=== PATIENT | male | born 1945 | race Caucasian/White ===

== ENCOUNTER 2018-11-15 15:13 | Observation (INO) | payer MEDICARE, OTHER ==
[~2018-11-15] VITALS: Ht 175.3 cm; Wt 83.9 kg
--- OUTSIDE RECORDS SUMMARY | ~2018-11-15 | XMS | Clinical Summary ---
Demographics + + + | Address | [address] | | | [place] [address] | + + + | Home Phone | | + + + | Preferred Language | Unknown | + + + | Marital Status | | + + + | Druze Affiliation | Unknown | + + + | Race | Unknown | + + + | Ethnic Group | Unknown | + + + Author + + + | Author | [facility] | | | and [place] | + + + | Organization | [facility] | | | and [place] | + + + | Address | Unknown | + + + | Phone | Unavailable | + + + Support + + +---------+ + | Name | Relationship | Address | Phone | + + +---------+ + | CORY DELVALLE | ECON | Unknown | | + + +---------+ + Care Team Providers + +------+ + | Care Hat Forming Machine Operator Name | Role | Phone | + +------+ + PP | Unavailable | + +------+ + Allergies Not on File Medications Not on file Active Problems Not on file Social History + +-------+ +--------+------+ | Tobacco Use | Types | Packs/Day | Years | Date | | | | | Used | | + +-------+ +--------+------+ | Never Assessed | | | | | + +-------+ +--------+------+ + + + | Sex Assigned at | Date Recorded | | | | + + + | Not on file | | + + + + + + + | Job Start Date | Occupation | Industry | + + + + | Not on file | Not on file | Not on file | + + + + + + + + | Travel History | Travel Start | Travel End | + + + + + + | No recent travel history available. | + + Plan of Treatment + + + + + | Health Maintenance | Due Date | Last Done | Comments | + + + + + | Vaccine: | | | | | Dtap/Tdap/Td (1 - | 6 | | | | Tdap) | | | | + + + + + | Vaccine: Zoster (1 | | | | | of 2) | 7 | | | + + + + + | Vaccine: | | | | | Pneumococcal 65+ | 2 | | | | Low/Medium Risk (1 | | | | | of 2 - PCV13) | | | | + + + + + | Vaccine: Influenza | | | | | (Season Ended) | 9 | | | + + + + + Results Not on filefrom Last 3 Months"
--- OUTSIDE RECORDS SUMMARY | ~2018-11-15 | XMS | Clinical Summary ---
Demographics + + + | Address | [address] | | | [place] [address] | + + + | Home Phone | | + + + | Preferred Language | Unknown | + + + | Marital Status | | + + + | Presybeterian Affiliation | Unknown | + + + | Race | Unknown | + + + | Ethnic Group | Unknown | + + + Author + + + | Author | [facility] | + + + | Organization | [facility] | + + + | Address | Unknown | + + + | Phone | Unavailable | + + + Support + + + + + | Name | Relationship | Address | Phone | + + + + + | Kaye Shin | ECON | [address] | | | | [place] | | | | | [address] | | + + + + + Care Team Providers + +------+ + | Care Plant Buyer Name | Role | Phone | + +------+ + | Andrez Juarez MD | PP | | + +------+ + Allergies Not on File Current Medications Not on file Active Problems Not [...] on file | | + + + Plan of Treatment Not on file Results Not on filefrom Last 3 Months Insurance + +--------+ +------+-------+ + | Payer | Benefi | Subscriber | Type | Phone | Address | | | t Plan | ID | | | | | | / | | | | | | | Group | | | | | + +--------+ +------+-------+ + | MEDICARE | MEDICA | [id number] | | | [address] | | | RE | | | | [place] [address] | | | IP-OP | | | | | + +--------+ +------+-------+ + | [employer] [place] | [employer] | [id number] | | | | | | [place] | | | | | | | [place] | | | | | + +--------+ +------+-------+ + + +--------+ +--------+ + + | Guarantor Name | Accoun | Relation to | Date | Phone | Billing Address | | | t Type | Patient | of | | | | | | | | | | + +--------+ +--------+ + + | YUNIOR SHIN | Person | Self [birth year] Home: | [address] | | | al/Fam | | 1946 | [phone] [place] [address] | | | virgil | | | [phone] | | + +--------+ +--------+ + +"
--- NOTE | 2018-11-15 17:50 | NUR ---
PT ARRIVED TO ROOM 110 AT THIS TIME. PT ALERT AND ORIENTED. PT AMBUALTED TO BATHROOM TO VOID SBA.
[2018-11-15] MEDS ORDERED: POTASSIUM CHLO20 ME1 PO (18:36)
[2018-11-15] MEDS ORDERED: TAMSULOSIN HCL0.4 MG PO (18:37)
[2018-11-15] MEDS ORDERED: AMLODIPINE-BEN1 EAC3 PO (18:37)
[2018-11-15] MEDS ORDERED: ATORVASTATIN CA20 MG PO (18:37)
--- NOTE | 2018-11-15 19:03 | NUR ---
RECIEVED BEDSIDE REPORT FROM SHERRI NEWELL. PATIENT RESTING AWAKE IN BED WITH FAMILY AT BEDSIDE. CALL LIGHT WITHIN REACH. WHITE BOARD UPDATED. PATIENT DENIES ANY NEEDS AT THIS TIME. TELE MONITOR 1, HR: 80.
--- NOTE | 2018-11-15 19:58 | NUR ---
THIS RN NOTIFIED BY NURSES IN CCU THAT PATIENT HAD 11 pSVT'S ON TELE MONITOR, NOTIFIED DR. JONES. NO NEW ORDERS AT THIS TIME.
--- NOTE | 2018-11-15 20:35 | NUR ---
ASSESSMENT COMPLETE, REFER TO ASSESSMENT. PATIENT DENIES HAVING PAIN, SHORTNESS OF BREATH, DIFFICULTY BREATHING, OR CHEST PAIN. PATIENT DENIES HAVING DIZZINESS OR LIGHTHEADEDNESS. TELE MONITOR 1, HR: 73. IV FLUIDS INFUSING PER MAR ORDER. IV ASSESSED, WNL. PROVIDED EDUCATION TO PATIENT ABOUT CALL LIGHT, PATIENT EXPRESSED UNDERSTANDING. CALL LIGHT WITHIN REACH. NO MORE NEEDS AT THIS TIME.
--- NOTE | 2018-11-15 23:14 | NUR ---
patient requested ice water and didnt need anything further at this time
--- NOTE | 2018-11-16 00:27 | NUR ---
ROUNDED ON PATIENT RESTING IN BED ON LEFT SIDE, RESPIRATORY RATE IS EVEN AND UNLABORED. HR ON TELE MONITOR IS 84. IV FLUIDS INFUSING PER MAR ORDER. CALL LIGHT WITHIN REACH.
--- NOTE | 2018-11-16 01:45 | NUR ---
RN NOTIFIED RE BP.
--- NOTE | 2018-11-16 02:08 | NUR ---
ASSESSMENT COMPLETE, REFER TO ASSESSMENT. PATIENT DENIES HAVING PAIN, CHEST PAIN, SHORTNESS OF BREATH OR DIFFICULTY BREATHING. IV FLUIDS INFUSING PER MAR ORDER. IV ASSESSED, WNL. TELE MONITOR 1, HR: 82. CALL LIGHT WITHIN REACH. NO MORE NEEDS AT THIS TIME.
--- NOTE | 2018-11-16 04:08 | NUR ---
ROUNDED ON PATIENT RESTING IN BED ON LEFT SIDE. RESPIRATORY RATE IS EVEN AND UNLABORED. CALL LIGHT WITHIN REACH.
--- NOTE | 2018-11-16 04:44 | NUR ---
ROUNDED ON PATIENT TO REPLACE CONTINOUS IV FLUIDS BAG PER OCT ORDER. THIS RN SBA PATIENT TO RESTROOM. PATIENT DENIES HAVING CHEST PAIN, SHORTNESS OF BREATH OR DIFFICULTY BREATHING. URINAL EMPTIED. PATIENT SAFELY BACK INTO BED. CALL LIGHT WITHIN REACH. NO MORE NEEDS AT THIS TIME.
--- NOTE | 2018-11-16 06:44 | NUR ---
NOTIFIED DR. JONES OF PATIENT'S BLOOD PRESSURES. NO NEW ORDERS.
--- NOTE | 2018-11-16 06:47 | EKG ---
[facility] [address] [facility] [place] [address] Signed Sinus rhythm with occasional premature ventricular complexes Nonspecific ST abnormality Abnormal ECG Confirmed by ANTHONY JONES MD ([id number]) on 11/16/2018 6:46:46 AM Electronically Signed By: ANTHONY JONSE MD 11/16/18 0647 PATIENT NAME: YUNIOR DELVALLE Electrocardiogram DATE OF : 47 PHYSICIAN: ANTHONY JONES MD REPORT #: [id number] REPORT IS CONFIDENTIAL AND NOT TO BE RELEASED WITHOUT AUTHORIZATION
--- NOTE | 2018-11-16 07:22 | NUR ---
RECIEVED BEDSIDE REPORT FROM REECE HUGHES. PT AWAKE AND ALERT IN BED. PT REPORTS GOOD APPITITE, VOIDING WELL. DR JONES AWARE OF PSVT EPISODE AND BP TRENDING HIGHER. IV FLUIDS RUNNING AT 125.
--- NOTE | 2018-11-16 08:14 | NUR ---
PATIENT WAS AWAKE, FACE WASHED, PATIENT IS UP TO CHAIR, 1 P. STBA NO NEEDS AT THIS TIME. CALL LIGHT IN REACH FRESH WATER GIVEN.
--- NOTE | 2018-11-16 10:00 | NUR ---
SPOKE WITH PATIENT IN ROOM. PATIENT INDEPENDENT AT HOME. STILL DRIVING AND WORKS. PATIENT DENIES NEEDING ANYTHING FOR SAFETY TO GO HOME. DISCUSSED WITH HIM THAT HE HAS NO PCP LISTED. PATIENT STATES HIS JUST RETIRED AND HE IS USING THAT CLINIC BUT HASN'T ESTABLISHED WITH NEW ONE YET. HE UNDERSTANDS IMPORTANCE OF HAVING A PCP AND HE INTENDS TO GET THIS DONE. DISCUSSED HE WILL NEED TO FOLLOW UP WITH THE CLINIC THEN REGARDING THIS ADMIT. DISCUSSED OTHER OPTIONS OF WALK-IN CLINICS, URGENT CARE AND ED FOR EMERGENCIES. DISCUSSED HE SHOULD KNOW DIAGNOSIS, TEST RESULTS, MEDICATIONS AND SIDE EFFECTS BEFORE DISCHARGE. PATIENT STATES UNDERSTANDING. QUESTIONS ANSWERED. STAFF UPDATED.
--- NOTE | 2018-11-16 10:09 | NUR ---
ADVISED DR JONES OF PT'S BP. HOME AMLODIPINE GIVEN. NO NEW ORDERS.
--- NOTE | 2018-11-16 13:14 | NUR ---
PT AWAKE AND ALERT IN CHAIR, SPOUSE AT BEDSIDE. HIS SPOUSE WOULD LIKE TO SPEAK WITH DR JONES, DR JONES AWARE.
--- NOTE | 2018-11-16 14:14 | NUR ---
PT IS ALERT, ORIENTED AND SUPPORTED BY HIS . BOTH ARE PLEASANT, POSITIVE AND HOPEFUL PT WILL DC TODAY. HAD GOOD VISIT, PT EXPRESSED GREAT SATISFACTION WITH CARE. EXTENDED A BLESSING, WILL FOLLOW NEEDED
--- NOTE | 2018-11-16 14:53 | NUR ---
Medications reconciled using pharmacy records and patient interview
--- NOTE | 2018-11-16 15:28 | NUR ---
PT AND HIS SPOUSE HAVE MANY QUESTIONS RE: FLUIDS AND TREATMENT PLAN. RN EXPLAINED THE DR CHANGEOVER AND THAT A NEW DR WILL BE TAKING OVER CARE. PT SEEMED TO UNDERSTAND, BUT HIS SEEMS UPSET THAT A SPECIALIST IS NOT INVOLVED. WHEN DR SNYDER ROUNDS, RN WILL ADVISE.
--- NOTE | 2018-11-16 17:47 | NUR ---
PT VOIDING LARGE AMOUNTS. IV FLUIDS. ORAL POTASSIUM REPLENISHMENT. FAMILY AT BEDSIDE, VERY CONCERNED ABOUT PLAN OF CARE. LABS REMAIN ABNORMAL. PT INDEPENDENT IN ROOM. EATING WELL.
--- NOTE | 2018-11-16 19:01 | NUR ---
RECIEVED BEDSIDE REPORT FROM REECE RITTER. PATIENT LAYING AWAKE IN BED WITH FAMILY AT BEDSIDE. IV FLUIDS INFUSING PER MAR ORDER. WHITE BOARD UPDATED. CALL LIGHT WITHIN REACH. NO MORE NEEDS AT THIS TIME.
--- NOTE | 2018-11-16 21:33 | NUR ---
ASSESSMENT COMPLETE, REFER TO ASSESSMENT. PATIENT DENIES HAVING CHEST PAIN, SHORTNESS OF BREATH, OR DIFFICULY BREATHING. TELE MONITOR 1, HR: 76. IV FLUIDS INFUSING PER MAR ORDER. PATIENT DENIES NUMBNESS OR TINGING IN EXTREMITIES. PATIENT DENIES PAIN. CALL LIGHT WITHIN REACH. NO MORE NEEDS AT THIS TIME. POSSESSIONS AT BEDSIDE.
--- NOTE | 2018-11-16 22:13 | NUR ---
V/S AND I&O DONE AND CHARTED.
--- NOTE | 2018-11-16 22:22 | NUR ---
ROUNDED ON PATIENT TO ADMINISTER IV BOLUS PER OCT ORDER. PATIENT RESTING IN BED WITH EYES CLOSED, RESPIRATORY RATE IS EVEN AND UNLABORED. PATIENT AWOKE TO THIS RN TALKING TO PATIENT. CALL LIGHT WITHIN REACH. FRESH WATER BROUGHT TO PATIENT PER PATIENT REQUEST. NO MORE NEEDS AT THIS TIME.
--- NOTE | 2018-11-16 22:46 | NUR ---
PLACED CALL TO DR. SNYDER TO VERIFY FLUID BOLUS ORDER. RECIEVED VERBAL ORDER TO DISCONTINUE IV BOLUS ORDER AND TO STOP THE BOLUS. VERIFIED ORDER VIA READBACK METHOD.
--- NOTE | 2018-11-16 22:55 | NUR ---
IV BOLUS STOPPED PER VERBAL ORDER BY DR. SNYDER. CONTINOUS IV FLUIDS INFUSING PER MAR ORDER. CALL LIGHT WITHIN REACH. NO MORE NEEDS AT THIS TIME.
--- NOTE | 2018-11-17 00:04 | NUR ---
ROUNDED ON PATIENT TO ANSWER PATIENT CALL LIGHT. THIS RN AND STUDENT NURSE ASSISTED PATIENT TO SITTING UP POSITION ON SIDE OF BED, STERNAL PRECAUTIONS FOLLOWED. PATIENT USED URINAL, URINAL EMPTIED. ASSISTED PATIENT BACK INTO BED AND REPOSITIONED PATIENT. NEW GOWN PLACED ON PATIENT. CALL LIGHT WITHIN REACH. BED ALARM ON FOR SAFETY. POSSESSIONS AT BEDSIDE.
--- NOTE | 2018-11-17 01:50 | NUR ---
ROUNDED ON PATIENT RESTING IN BED WITH EYES CLOSED, RESPIRATORY RATE IS EVEN AND UNLABORED. CALL LIGHT WITHIN REACH. NO MORE NEEDS AT THIS TIME.
--- NOTE | 2018-11-17 04:13 | NUR ---
ROUNDED ON PATIENT RESTING IN BED WITH EYES CLOSED, RESPIRATORY RATE IS EVEN AND UNLABORED. CALL LIGHT WITHIN REACH.
--- NOTE | 2018-11-17 04:29 | NUR ---
ASSESSMENT COMPLETE, REFER TO ASSESSMENT. PATIENT DENIES PAIN, CHEST PAIN, SHORTNESS OF BREATH, OR DIFFICULTY BREATHING. TELE MONITOR 1, HR: 80. IV FLUIDS INFUSING PER MAR ORDER. URINALS EMPTIED. FRESH WATER PROVIDED TO PATIENT. CALL LIGHT WITHIN REACH. POSSESSIONS AT BEDSIDE. NO MORE NEEDS AT THIS TIME.
--- NOTE | 2018-11-17 05:44 | NUR ---
ROUNDED ON PATIENT TO REPLACE PATIENT'S CONTINOUS IV FLUIDS BAG PER OCT ORDER. PATIENT DENIES ANY MORE NEEDS AT THIS TIME. CALL LIGHT WITHIN REACH.
--- NOTE | 2018-11-17 07:15 | NUR ---
BEDSIDE HANDOFF REPORT RECEIVED FROM ONLINE TUTOR RN. PT RESTING IN BED. PT DENIES NEEDS AT THIS TIME.
--- NOTE | 2018-11-17 07:54 | NUR ---
PT RESTING INBED. PT ALERT/ORIENTED. PT DENIES PAIN. LUNG SOUNDS CLEAR, PT ON ROOM AIR, DENIES SOB. BOWEL TONES ACTIVE, ASSISTED TO ORDER BREAKFAST, DENIES NAUSEA. CMS INTACT, WIHTOUT EDEMA, PULSES PALPABLE. IV INFUSING D5W AT 125 ML/HR. TELE #1, SR. PT DENIES OTHER NEEDS. DISCUSSED PLAN OF CARE.
--- NOTE | 2018-11-17 08:55 | NUR ---
Patient is up and to his chair, Patient is room independent. patient dose all his own cares. fesh water given and call light in reach.
--- NOTE | 2018-11-17 09:55 | NUR ---
PT COMPLETED WITH SHOWER. IV INFUSION RESTARTED.
[2018-11-17] MEDS ORDERED: AMLODIPINE-BEN1 EAC3 PO (10:10)
[2018-11-17] MEDS ORDERED: ATORVASTATIN CA20 MG PO (10:10)
[2018-11-17] MEDS ORDERED: POTASSIUM CHLO20 ME1 PO ×2 (10:10→10:13)
[2018-11-17] MEDS ORDERED: TAMSULOSIN HCL0.4 MG PO (10:10)
--- NOTE | 2018-11-17 10:37 | NUR ---
NOTFIED OF HYPERTENSION. TO ENTER NEW ORDER.
--- NOTE | 2018-11-17 12:00 | NUR ---
DISCHARGE INSTRUCTIONS COMPLETED WITH PT. MEDICATIONS REVIEWED. QUESTIONS ANSWERED. AWAITING POTASSIUM RIDER INFUSION TO BE COMPLETED BEFORE DSICHARGE. PT DENIES OTHER NEEDS AT THIS TIME.
== END 2018-11-17 13:30 | disposition home or self-care (01) ==
LOC: ED 15:13 → MS 15:15
PROVIDERS: ADMIT Internal Medicine
DX: N17.9 Acute kidney failure, unspecified (principal); I10 Essential (primary) hypertension; R55 Syncope and collapse; I25.10 Atherosclerotic heart disease of native coronary artery without angina pectoris; E87.1 Hypo-osmolality and hyponatremia; E87.6 Hypokalemia; Z79.899 Other long term (current) drug therapy; Z95.5 Presence of coronary angioplasty implant and graft
CPT/HCPCS: 36415; 71045; 80048; 80053; 81001; 83735; 83930; 83935; 84300; 84484; 85025; 93005; 93010; 96361; 96365; 96366; 96376; 99285-25; G0378; J3480; J7030; J7060; J7070; J7120